=== PATIENT | male | born 1965 | race Caucasian/White ===

== ENCOUNTER → 2020-12-16 | Outpatient (CLI) | payer OTHER, BC ==
[~2020-12-16] MED LIST: ACETAMINOPHEN325 M1 PO; COVID-19 VAC,AD26(JANSSEN)/PF 2.5 ML VIAL IM ONE; DEXILANT60 MG PO; IBUPROFEN400 MG PO; LIPITOR20 MG PO
== END ==
LOC: VACCPMC 09:23
DX: Z23 Encounter for immunization (principal); Z20.822 Contact with and (suspected) exposure to COVID-19
CPT/HCPCS: 91303